=== PATIENT | female | born 1950 | race Caucasian/White ===

== ENCOUNTER → 2017-06-23 | Outpatient (CLI) | payer BC, OTHER ==
[~2017-06-23] VITALS: Ht 172.7 cm; Wt 95.3 kg
[~2017-06-23] MED LIST: ANTACID GELATI1 EACH PO; BETA CAROT10000 UNIT PO; FENOFIBRATE50 MG PO; FENOFIBRATE54 M1 PO; FUROSEMIDE20 MG PO; FUROSEMIDE40 MG PO; GLUCOSAMINE &1 EACH PO; LO-DOSE ASPIRIN81 M1 PO; LOSARTAN POTAS100 MG PO; LOSARTAN POTASS50 MG PO; MULTIVITAMIN1 EAC2 PO; SYNTHROID88 MCG PO
== END | disposition home or self-care (01) ==
LOC: AMB 11:26
PROC: 0DJD8ZZ Inspection of Lower Intestinal Tract, Via Natural or Artificial Opening Endoscopic (ICD-10-PCS; principal; 2017-06-23)
DX: Z12.11 Encounter for screening for malignant neoplasm of colon (principal); K57.30 Diverticulosis of large intestine without perforation or abscess without bleeding; I10 Essential (primary) hypertension; E03.9 Hypothyroidism, unspecified; E78.5 Hyperlipidemia, unspecified; K76.0 Fatty (change of) liver, not elsewhere classified; Z79.82 Long term (current) use of aspirin
CPT/HCPCS: 93005; J2250; J3010